=== PATIENT | female | born 1975 | race Caucasian/White ===

== ENCOUNTER 2021-05-17 16:37 | Emergency (ER) | payer MEDICARE, MEDICAID ==
[~2021-05-17] VITALS: Ht 152.4 cm; Wt 54.0 kg
[2021-05-17 16:40] VITALS: BP 91/64
== END 2021-05-17 17:46 | disposition left against medical advice (07) ==
LOC: ER 16:37
DX: E11.8 Type 2 diabetes mellitus with unspecified complications (principal); Z53.21 Procedure and treatment not carried out due to patient leaving prior to being seen by health care provider

== ENCOUNTER 2021-10-04 17:38 | Emergency (ER) | payer MEDICARE, MEDICAID ==
[~2021-10-04] VITALS: Ht 157.5 cm; Wt 55.0 kg
[2021-10-04 17:42] VITALS: BP 102/66
== END 2021-10-04 19:36 | disposition left against medical advice (07) ==
LOC: ER 17:38
DX: Z53.21 Procedure and treatment not carried out due to patient leaving prior to being seen by health care provider (principal)
CPT/HCPCS: 99283